=== PATIENT | female | born 1995 | race Hispanic/Latino ===

== ENCOUNTER 2023-05-02 03:09 | Inpatient (IN) | payer OTHER ==
[2023-05-02] MEDS ORDERED: Lidocaine 1% (PF) 30 ML VIAL SC PRN (04:41)
[2023-05-02] MEDS ORDERED: Ondansetron PF 4 MG/2 ML Vial IVP PRN ×2 (04:41→05:41)
[2023-05-02] MEDS ORDERED: hydrALAZINE 20 MG/ML VIAL SLOW IVP PRN ×3 (04:41→14:00)
[2023-05-02] MEDS ORDERED: Promethazine HCl 25 MG/ML VIAL IM PRN ×2 (04:41→05:41)
[2023-05-02] MEDS ORDERED: Tranexamic Acid 1,000 MG/10 ML VIAL IVP PRN (04:42)
[2023-05-02] MEDS ORDERED: Misoprostol 200 MCG TAB PR PRN (04:42)
[2023-05-02] MEDS ORDERED: Methylergonovine 0.2 MG/ML VIAL IM PRN (04:42)
[2023-05-02] MEDS ORDERED: Ibuprofen 800 MG TAB PO PRN (04:42)
[2023-05-02] MEDS ORDERED: Carboprost 250 MCG/ML AMP IM PRN (04:42)
[2023-05-02] MEDS ORDERED: NS w/ Oxytocin 30 units 500 ML IV SCH ×2 (05:00)
[2023-05-02 05:06] LABS: Hemoglobin 12.9 g/dL (12.0-15.5); Mean Corpuscular HGB CONC 34.1 g/dL (32.0-36.0); Mean Corpuscular Hemoglobin 30.9 pg (27.0-33.0); Mean Corpuscular Volume 90.4 fl (81.6-98.3); Mean Platelet Volume 10.1 fl (7.4-10.4); Platelet Count 233 10x3/uL (150-450); RBC Distribution Width 14.1 % (11.5-14.5); Red Blood Cell (RBC) Count 4.18 10x6/uL (3.90-5.03); White Blood Cell (WBC) Count 11.7 10x3/uL (3.5-10.5)
[2023-05-02] MEDS ORDERED: fentaNYL/Ropivacaine Epidural 100 ML ONE (05:07)
[2023-05-02 05:27] LABS: Syphilis Antibody Nonreactive (Nonreactive); Syphilis Antibody Index 0.07 S/CO (<1.00 Non-Reactive)
[2023-05-02 05:28] LABS: HBSAg Index 0.16 S/CO (0-0.99); Hep B Surf Ag - L&D Non-Reactive S/CO (NonReactive)
[2023-05-02] MEDS ORDERED: diphenhydrAMINE 50 MG/ML VIAL IVP PRN (05:41)
[2023-05-02] MEDS ORDERED: ePHEDrine Sulfate 50 MG/10 ML VIAL SLOW IVP PRN (05:41)
[2023-05-02] MEDS ORDERED: Lactated Ringer's 500 ML IV PRN (05:41)
[2023-05-02] MEDS ORDERED: Acetaminophen 325 MG TAB PO PRN (05:41)
[2023-05-02] MEDS ORDERED: Naloxone HCl 0.4 mg/ml Vial IVP PRN ×2 (05:41)
[2023-05-02] MEDS ORDERED: Moisturizing Cream (Eucerin) 113 GM JAR TOP PRN (05:41)
[2023-05-02] MEDS ORDERED: Communication Order-Pharmacy FS SCH (05:45)
[2023-05-02] MEDS ORDERED: fentaNYL 2 mcg/Ropivacaine 0.2% Epidural 100 ML CADD EPIDURAL SCH (05:45)
[2023-05-02] MEDS ORDERED: Bupivacaine 0.25% HCL 30 ML VIAL ONE (13:25)
[2023-05-02] MEDS ORDERED: Milk Of Magnesia 30 ML UDCUP PO PRN (14:00)
[2023-05-02] MEDS ORDERED: Bisacodyl 10 MG SUPP PR PRN (14:00)
[2023-05-02] MEDS ORDERED: Boostrix 0.5 ML (Tdap) VIAL (>/=7 yrs of age) IM ONE (14:00)
[2023-05-02] MEDS: Ferrous Sulfate 325 MG TAB PO SCH (16:49)
[2023-05-02] MEDS: Ibuprofen 800 MG TAB PO SCH ×2 (16:49→22:04)
[2023-05-02] MEDS: Docusate 100 MG CAP PO SCH (22:04)
[2023-05-03] MEDS: Ibuprofen 800 MG TAB PO SCH ×2 (05:07→13:55)
[2023-05-03 05:12] LABS: #Eosinphils 0.1 10x3/uL (0.0-0.5); #Monocytes 0.6 10x3/uL (0.0-1.1); #Neutrophils 8.5 10x3/uL (1.5-8.4); %Basophils 0.3 % (0.0-2.0); %Eosinophils 1.1 % (0.0-6.0); %Lymphocytes 19.5 % (18.0-47.0); %Monocytes 5.1 % (0.0-10.0); %Neutrophils 73.4 % (40.0-75.0); Hemoglobin 12.3 g/dL (12.0-15.5); Mean Corpuscular Hemoglobin 31.1 pg (27.0-33.0); Mean Corpuscular Volume 91.4 fl (81.6-98.3); Mean Platelet Volume 10.1 fl (7.4-10.4); Platelet Count 230 10x3/uL (150-450); RBC Distribution Width 14.3 % (11.5-14.5); Red Blood Cell (RBC) Count 3.96 10x6/uL (3.90-5.03); White Blood Cell (WBC) Count 11.6 10x3/uL (3.5-10.5)
[2023-05-03] MEDS ORDERED: HYDROcodone/Acetaminophen 5/325 mg Tablet PO PRN ×2 (07:59)
[2023-05-03] MEDS: Docusate 100 MG CAP PO SCH (08:16)
[2023-05-03] MEDS ORDERED: Prenatal Vitamin 1 TAB PO SCH (09:00)
[2023-05-03] MEDS: Ferrous Sulfate 325 MG TAB PO SCH (10:24)
[2023-05-03 11:03] VITALS: BP 108/56; TEMP 98
== END 2023-05-03 19:15 | disposition home or self-care (01) | DRG 807 ==
LOC: CSHLD/OP 03:09 → CSHLD 04:41 → CSHPP 16:33
PROVIDERS: ADMIT Obstetrics & Gynecology; ATTEND Obstetrics & Gynecology
PROC: 10E0XZZ Delivery of Products of Conception, External Approach (ICD-10-PCS; principal; 2023-05-02)
PROC: 0HQ9XZZ Repair Perineum Skin, External Approach (ICD-10-PCS; 2023-05-02)
DX: O42.02 Full-term premature rupture of membranes, onset of labor within 24 hours of rupture (principal); Z37.0 Single live birth; O48.0 Post-term pregnancy; Z3A.40 40 weeks gestation of pregnancy; O43.123 Velamentous insertion of umbilical cord, third trimester; Z79.899 Other long term (current) drug therapy; Z88.0 Allergy status to penicillin; Z91.018 Allergy to other foods; O69.81X0 Labor and delivery complicated by cord around neck, without compression, not applicable or unspecified; O70.0 First degree perineal laceration during delivery
CPT/HCPCS: 36415; 51702; 85025; 85027; 86780; 86850; 86900; 86901; 87340; 99285; S0020